=== PATIENT | female | born 1990 | race Caucasian/White ===

== ENCOUNTER 2018-10-10 15:57 | Emergency (ER) | payer BC ==
[~2018-10-10] VITALS: Ht 175.3 cm; Wt 77.1 kg
[2018-10-10] MEDS ORDERED: GABAPENTIN600 MG ORAL (16:18)
--- NOTE | 2018-10-10 16:37 | Emergency Room Report ---
History of Present Illness General Chief Complaint: Overdose Source: Patient, Friend, EMS Present Illness HPI Patient recently went through rehabilitation. She was not answering her phone this morning. Her friend was worried that she might be going through either withdrawal or have overdosed. Police were summoned and then paramedics because the patient had allegedly may have overdosed on medications. Specifically, she has been inhaling electronic service line bus cleaner. The patient's complaining about generalized body pain. She says that she wants to at this time. Nausea. States she is not . Headache. No rashes. Allergies: Coded Allergies: No Known Allergies (Unverified , 10/10/18) Patient History Past Medical History: see triage record Social History: Reports: drug use; Denies: smoking Social History Narrative at home Last Menstrual Period: IUD Reviewed Nursing Documentation: PMH: Agreed; PSxH: Agreed Nursing Documentation-PMH Past Medical History: No History, Except For History Of Psychiatric Problem: Yes - depression and anxiety Review of Systems All Other Systems: negative except mentioned in HPI Physical Exam Vital Signs Date Time Temp Pulse Resp B/P (MAP) Pulse Ox O2 Delivery O2 Flow Rate FiO2 10/10/18 16:15 98.4 100 18 110/70 99 Room Air Sp02 EP Interpretation: reviewed, normal General Appearance: alert, GCS 15, mild distress Head: normocephalic, atraumatic Eyes: bilateral eye normal inspection, bilateral eye PERRL, bilateral eye EOMI ENT: moist mucus membranes Neck: supple Respiratory: lungs clear, normal breath sounds Cardiovascular #1: regular rate, rhythm Cardiovascular #2: 2+ radial (R) Gastrointestinal: normal bowel sounds, non tender Genitourinary: no CVA tenderness Musculoskeletal: back normal Neurologic: oriented x3, motor strength/tone normal, DTRs symmetric, sensory intact, speech normal Psychiatric: depressed affect, anxious Suicide Risk Assessment: Suicidal Ideation: Yes Had intent to initiate attempt: Yes Pt's plan for suicide attempt: Yes Has means to complete attempt: Yes Skin: normal color, no rash Medical Decision Making Diagnostic Impression: Primary Impression: Inhalation overdose Additional Impressions: Suicidal ideation Inhalant abuse Schizoaffective disorder Qualified Codes: F25.9 - Schizoaffective disorder, unspecified ER Course Patient is here with alleged overdose by inhalation. She's coherent at this time and complaining of wanting to . The patient needs to have medical evaluation. She'll be treated with IV hydration and Reglan Benadryl and Toradol. Placed on a 5150 and we will need to medically clear her before having a psychiatric evaluation team come to evaluate her. Patient was sinus rhythm on the monitor. Mild leukocytosis. + THC tox Anxious. Ativan ordered. Improved with ativan. Patient is medically stable for psychiatric evaluation and treatment. Patient requested meds for night. Takes Seroquel and Trazodone. Also ledges she takes Thorazine. Signed out to Dr. Pizano. Laboratory Tests Test 10/10/18 16:30 10/10/18 18:00 White Blood Count 13.3 K/UL (4.8-10.8) H Red Blood Count 4.04 M/UL (4.20-5.40) L Hemoglobin 13.0 G/DL (12.0-16.0) Hematocrit 38.9 % (37.0-47.0) Mean Corpuscular Volume 96 FL (80-99) Mean Corpuscular Hemoglobin 32.1 PG (27.0-31.0) H Mean Corpuscular Hemoglobin Concent 33.4 G/DL (32.0-36.0) Red Cell Distribution Width 12.1 % (11.6-14.8) Platelet Count 397 K/UL (150-450) Mean Platelet Volume 5.5 FL (6.5-10.1) L Neutrophils (%) (Auto) 88.3 % (45.0-75.0) H Lymphocytes (%) (Auto) 8.9 % (20.0-45.0) L Monocytes (%) (Auto) 2.3 % (1.0-10.0) Eosinophils (%) (Auto) 0.0 % (0.0-3.0) Basophils (%) (Auto) 0.4 % (0.0-2.0) Sodium Level 142 MMOL/L (136-145) Potassium Level 4.2 MMOL/L (3.5-5.1) Chloride Level 106 MMOL/L (98-107) Carbon Dioxide Level 23 MMOL/L (21-32) Anion Gap 13 mmol/L (5-15) Blood Urea Nitrogen 8 mg/dL (7-18) Creatinine 0.9 MG/DL (0.55-1.30) Estimate Glomerular Filtration Rate > 60 mL/min (>60) Glucose Level 106 MG/DL (74-106) Calcium Level 8.7 MG/DL (8.5-10.1) Total Bilirubin 0.2 MG/DL (0.2-1.0) Aspartate Amino Transferase (AST) 16 U/L (15-37) Alanine Aminotransferase (ALT) 32 U/L (12-78) Alkaline Phosphatase 60 U/L (46-116) Total Creatine Kinase 56 U/L (26-308) Total Protein 7.3 G/DL (6.4-8.2) Albumin 3.6 G/DL (3.4-5.0) Globulin 3.7 g/dL Albumin/Globulin Ratio 1.0 (1.0-2.7) Salicylates Level 1.3 ug/mL (2.8-20) L Acetaminophen Level < 2 MCG/ML (10-30) L Serum Alcohol < 3 mg/dL Urine Color Pale yellow Urine Appearance Slightly cloudy Urine pH 6.5 (4.5-8.0) Urine Specific Forsan 1.015 (1.005-1.035) Urine Protein Negative (NEGATIVE) Urine Glucose (UA) Negative (NEGATIVE) Urine Ketones Negative (NEGATIVE) Urine Blood 4+ (NEGATIVE) H Urine Nitrite Negative (NEGATIVE) Urine Bilirubin Negative (NEGATIVE) Urine Urobilinogen Normal MG/DL (0.0-1.0) Urine Leukocyte Esterase Negative (NEGATIVE) Urine RBC 0-2 /HPF (0 - 2) Urine WBC 0-2 /HPF (0 - 2) Urine Squamous Epithelial Cells Moderate /LPF (NONE/OCC) H Urine Bacteria Many /HPF (NONE) H Urine HCG, Qualitative Negative (NEGATIVE) Urine Opiates Screen Negative (NEGATIVE) Urine Barbiturates Screen Negative (NEGATIVE) Phencyclidine (PCP) Screen Negative (NEGATIVE) Urine Amphetamines Screen Negative (NEGATIVE) Urine Benzodiazepines Screen Negative (NEGATIVE) Urine Cocaine Screen Negative (NEGATIVE) Urine Marijuana (THC) Screen Positive (NEGATIVE) H Rhythm Strip Diag. Results EP Interpretation: yes Rhythm: NSR, no PVC's, no ectopy Status: improved Disposition: XFER TO PSYCH HOSP/UNIT - [place] Condition: Serious Erlin Perez MD Oct 10, 2018 16:37
[2018-10-10] MEDS: Ketorolac 30mg Inj IV ONE (16:43)
[2018-10-10] MEDS: DiphenhydrAMINE 50mg/ml Inj IVP ONE (16:43)
[2018-10-10] MEDS: Metoclopramide 10mg/2ml Inj IVP ONE (16:43)
[2018-10-10 16:48] LABS: HEMATOCRIT 38.9 % (37.0-47.0); MEAN CORPUSCULAR VOLUME 96 FL (80-99); PLATELET COUNT 397 K/UL (150-450); RED BLOOD COUNT 4.04 M/UL (4.20-5.40); RED CELL DISTRIBUTION WIDTH 12.1 % (11.6-14.8); WHITE BLOOD COUNT 13.3 K/UL (4.8-10.8)
[2018-10-10 16:49] LABS: BASOPHILS % (AUTO) 0.4 % (0.0-2.0); LYMPHOCYTES % (AUTO) 8.9 % (20.0-45.0); MONOCYTES % (AUTO) 2.3 % (1.0-10.0); NEUTROPHILS % (AUTO) 88.3 % (45.0-75.0)
[2018-10-10 16:58] LABS: ANION GAP 13 mmol/L (5-15); BLOOD UREA NITROGEN 8 mg/dL (7-18); CALCIUM 8.7 MG/DL (8.5-10.1); CARBON DIOXIDE 23 MMOL/L (21-32); CHLORIDE 106 MMOL/L (98-107); CREATININE 0.9 MG/DL (0.55-1.30); POTASSIUM 4.2 MMOL/L (3.5-5.1); SODIUM 142 MMOL/L (136-145)
[2018-10-10 17:02] LABS: ALANINE AMINOTRANSFERASE 32 U/L (12-78); ALBUMIN 3.6 G/DL (3.4-5.0); ALKALINE PHOSPHATASE 60 U/L (46-116); ASPARTATE AMINO TRANSFERASE 16 U/L (15-37); BILIRUBIN,TOTAL 0.2 MG/DL (0.2-1.0); CREATINE KINASE 56 U/L (26-308)
[2018-10-10 17:13] VITALS: BP 99/57
--- NOTE | 2018-10-10 17:15 | NUR ---
ED Nurse Note: Pt BIBA [employer] and [employer] due to pt being found unresponsive in her apartment with 2 aerosol cans in her bedside. Pt came into the ER awake but restless. [employer] put pt in 5150 hold. Things collected and placed in locker. A + O x4. Skin warm to touch.
--- NOTE | 2018-10-10 17:31 | NUR ---
ED Nurse Note: Pt's belongings placed in Locker #2.
--- NOTE | 2018-10-10 17:33 | NUR ---
ED Nurse Note: Pt was recently discharged from [facility] in July 2018.
--- NOTE | 2018-10-10 17:35 | NUR ---
ED Nurse Note: Contact info for pt Anila Leyva (mother) [phone] Erinn Anthony (window caser) [phone] Dr. Jim Merritt (psychiatrist) [phone] Nimo Reynolds (therapist) [phone]
[2018-10-10] MEDS: LORazepam Inj 2mg/ml 1ml IV ONE ×2 (18:21→20:29)
[2018-10-10 18:27] LABS: APPEARANCE,URINE SLIGHTLY CLOUDY; BILIRUBIN, URINE NEGATIVE (NEGATIVE); COLOR,URINE PALE YELLOW; GLUCOSE, URINE (UA) NEGATIVE (NEGATIVE); KETONES,URINE NEGATIVE (NEGATIVE); LEUKOCYTE ESTERASE ,URINE NEGATIVE (NEGATIVE); NITRITE,URINE NEGATIVE (NEGATIVE); PH,URINE 6.5 (4.5-8.0); PROTEIN,URINE NEGATIVE (NEGATIVE); UROBILINOGEN,URINE NORMAL MG/DL (0.0-1.0)
--- NOTE | 2018-10-10 19:02 | NUR ---
HAND-OFF: Report given to VENUS Solano.
--- NOTE | 2018-10-10 19:05 | NUR ---
ED Nurse Note: ENDORSEMENT RECEIVED, PT VSS AT THE MOMENT, PT IS ASLEEP NO DISTRESS, WILL CONTINUE TO MONITOR AND AWAIT FURTHER ERMD ORDERS
--- NOTE | 2018-10-10 19:05 | NUR ---
ED Nurse Note: CALLED NURSING STITCHER FEEDER, NO SITTER AVAILABLE, PT PLACED NEAR NURSING STATION, PT MONITORED CLOSELY.
[2018-10-10 19:16] VITALS: BP 105/64
--- NOTE | 2018-10-10 19:25 | NUR ---
ED Nurse Note: PT WOKE UP, REASSESSED, PT DENIES SUICIDAL PLAN, PT VOICE IS MODERATELY LOW, PT RESTING IN BED
--- NOTE | 2018-10-10 19:55 | NUR ---
ED Nurse Note: LAW EMT IS BY BEDSIDE SITTER
--- NOTE | 2018-10-10 20:04 | NUR ---
ED Nurse Note: PT WAS GIVEN A SANDWHICH AND JUICE
--- NOTE | 2018-10-10 20:15 | NUR ---
ED Nurse Note: RECIEVED PT ON JORGITOKENNETH FROM BED 2, PT IS HERE ON 5150 HOLD AND IS MEDICALLY CLEARED AND WAITING FOR PLACEMENT, PT IS AWAKE, AND ALERT, PT ANSWERS YES TO BEING SUICIDAL BUT DOES NOT ELECIT ANY FURTHER INFO OR ANSWER QUESTIONS, PT HAS SITTER AT BEDSIDE, PT IS CALM AND NO ATTEMPTS MADE WILL RESUME CARE, REMAIN ON SUICIDAL PRECAUTIONS WITH SITTER AND CONTINUE TO CLOSELY MONITOR.
[2018-10-10 21:30] VITALS: BP 111/58
--- NOTE | 2018-10-10 21:39 | NUR ---
ED Note: Pt. is continuously asking for medications to "help her sleep". has been made aware
[2018-10-10] MEDS ORDERED: TraZODone 50mg tab ONE (22:13)
[2018-10-10] MEDS: TraZODone 100mg tab ORAL ONE (22:15)
--- NOTE | 2018-10-10 23:00 | NUR ---
ED Nurse Note: PT CONTINUES TO REST IN BED, HAS INTERMITTENT PERIODS OF LASHING OUT AND YELLING WHEN SHE DOES NOT GET HER WAY, TP ASKING FOR MAGAZINES AND COMPUTER GAMES, AND ANGRY WE DO NOT HAVE ANY, PT THEN DEMANDING FOR THORAZINE MEDICATION, IS AWARE, PT GIVEN NIGHT MEDS, SITTER REMAINS AT BEDSIDE, WILL CONTINUE TO CLOSELY MONITOR WHILE PT REMAINS ON 5150 HOLD WIHT SUICIDAL PRECAUTIONS.
[2018-10-11] VITALS: BP 99/59
--- NOTE | 2018-10-11 01:00 | NUR ---
ED Nurse Note: PT IN BED SLEEPING, MEDS GIVEN EFFECTIVE, NO SOB OR LABORED BREATHING, SITTER NO LONGER AVAILABLE, WILL CONTINUE TO CLOSELY MONITOR AND PREPARE FOR POSSIBLE TRANSFER TO [facility], JUST SPOKE WITH COORDINATOR JAILYN ON PHONE AND GAVE UPDATED INFORMATION AND PT ASSESSMENT, WILL CONTINUE OT CLOSELY MONITOR ON 5150 HOLD AND SUICIDAL PRECAUTIONS.
[2018-10-11 02:15] VITALS: BP 101/54
--- NOTE | 2018-10-11 02:15 | NUR ---
ED Nurse Note: PT BEING TRANSFERRED TO [facility], REPORT CALLED TO RN,TAYLOR MADRID AT [phone], REPORT GIVEN WITH ALL PERTINTNT INFORMATION, AMBULANCE HAS ARRIVED FOR PT TRANSPORT, REPORT GIVEN TO TR[employer] LAYING SUPERVISOR SIDDHARTHA OF [facility] R[facility]#15, PT BEING TRANSFERRED VIA GURNEY AWAKE, ALERT AND ORIENTED X 4, SALINE LOCK REMOVED WITHOUT COMPLICATIONS, NAD NOTED DURING PT TRANSFER. ALL BELONGINGS SENT WITH PT AND LIST COMPLETED.
[2018-10-11 02:35] VITALS: BP 101/54
== END 2018-10-11 02:35 ==
LOC: EDBD 15:57 → EMR 16:27
DX: T65.891A Toxic effect of other specified substances, accidental (unintentional), initial encounter (principal); Y92.89 Other specified places as the place of occurrence of the external cause; R45.851 Suicidal ideations; F25.9 Schizoaffective disorder, unspecified; M79.10 Myalgia, unspecified site; R51 Headache; R11.0 Nausea
CPT/HCPCS: 36415; 80053; 80307; 81003; 81025; 82550; 85025; 87086; 96361; 96374; 96375; 96376; 99285; G0480; J1200; J1885; J2765; 80329